=== PATIENT | female | born 1990 | race Caucasian/White ===

== ENCOUNTER 2024-12-08 12:41 | Emergency (ER) | payer SELFPAY ==
[2024-12-08 12:42] VITALS: BP 106/85; PULSE 78; RESP 20; TEMP 36.8; O2SAT 99; BMI 36.3
--- NOTE | 2024-12-08 12:53 | EDS_ITS ---
HPI History of Present Illness Chief Complaint: Dizziness Detail of Chief Complaint: Dizziness Informant: patient Narrative Narrative: Patient presents with complaint of dizziness that started this morning around 10:30 AM. Patient states that she was laying on the floor and then she stood up and felt lightheaded but that feeling never went away. She complains of a mild headache. She had similar feeling before when her hemoglobin was low. 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 A repeat check of her hemoglobin later confirmed that she was back up over 12 and she has since had an ultrasound that showed no retention of products of conception. She tells me she had a cold 1 or 2 weeks ago but has gotten over that. She denies urinary symptoms. Last menstrual period was November 12. [facility] Medical History no medical history Home Medications ?Medication ?Instructions ?Recorded ?Last Taken ?Type NK 12/08/24 Unknown History Allergy/AdvReac Type Severity Reaction Status Date / Time fexofenadine (From Validus-IVC) Allergy Hives Verified 12/08/24 12:45 Family History no significant family his Surgical History (Updated 12/08/24 @ 12:47 by Cyndi Wadsworth) History of tonsillectomy and adenoidectomy Hx of cholecystectomy Surgical History no surgical history Social History Smoking Status: Never smoker ROS ROS ED Review of Systems ROS Unobtainable: other Constitutional Constitutional ED: Reports lethargy; Denies chills, fever(s), sweats or weight loss Eyes Eyes: Denies blurry vision, change in vision or diplopia ENT ENT ED: Denies rhinorrhea or sore throat Cardiovascular Cardiovascular: Denies chest pain, orthopnea or racing heartbeat Respiratory/Chest Respiratory/Chest: Denies cough, dyspnea, dyspnea on exertion, orthopnea or sputum Gastrointestinal Gastrointestinal: Denies abdominal pain, diarrhea, nausea or vomiting Genitourinary Genitourinary ED: Denies dysuria, hematuria or urinary frequency Musculoskeletal Musculoskeletal: Denies arthralgias, back pain, myalgias or neck pain Integumentary Denies abscess, Abrasions or rash Neurologic Neurologic: Reports other Details: Lightheadedness ; Denies headache(s) or weakness Psychiatric Psychiatric: Denies anxiety, depression or suicidal thoughts Endocrine Endocrinology: Denies polydipsia, polyphagia or polyuria Hematologic/Lymphatic Hematologic/Lymphatic: Denies easy bleeding, easy bruising or lymphadenopathy Allergic/Immunologic Allergic/Immunologic ED: Denies mouth swelling, tongue swelling or urticaria EXAM Physical Exam Const Vital Signs: 12/08/24 12:42 12/08/24 13:13 Temperature 98.3 F Temperature Source Oral Pulse Rate 78 Pulse Rate [Lying] 77 Pulse Rate [Sitting (for 1 minute prior to obtaining)] 77 Pulse Rate [Standing (for 1 minute prior to obtaining)] 86 Respiratory Rate 20 H Blood Pressure 106/85 H Blood Pressure [Lying] 111/75 Blood Pressure [Sitting (for 1 minute prior to obtaining)] 122/78 H Blood Pressure [Standing (for 1 minute prior to obtaining)] 113/95 H Blood Pressure Mean 92 Blood Pressure Mean [Lying] 87 Blood Pressure Mean [Sitting (for 1 minute prior to obtaining)] 92 Blood Pressure Mean [Standing (for 1 minute prior to obtaining)] 101 Pulse Ox 99 Positive well nourished and well developed General Appearance ED: well developed and NAD HEENT Reports TM's clear and moist mucous membranes normocephalic and atraumatic; Negative for trauma or tenderness Tympanic Membrane ED: Yes TM's clear Eyes PERRL and EOMs intact bilaterally General Eye ED: Negative for pale conjunctiva or scleral icterus Neck no lymphadenopathy, supple and no JVD General: Negative for tenderness Chest Wall inspection of chest normal and palpation of chest normal Chest: Negative for tenderness Resp normal respiratory effort and clear to auscultation bilaterally Effort and Inspection: Negative for respiratory distress or pain with movement Auscultation: Negative for rhonchi, wheezes or diminished lung sounds Cardio regular rate, regular rhythm, S1 normal heart sound, S2 normal heart sound and no murmurs Peripheral Pulses: pulses 2+ throughout GI normal to inspection, nondistended, normoactive bowel sounds, soft to palpation, non-tender, non-distended and no masses Back/Spine no CVA tenderness and no thoracic nor lumbar tenderness Extremity normal to inspection General Extremety ED: Negative for edema General Extremity: Negative for edema Neuro oriented x3, CN's II-XII intact bilaterally, no sensory deficits noted and gait normal Sensorium / Orientation: awake, alert, oriented to person, oriented to place and oriented to time Motor Exam: strength 5/5 throughout and strength abnormal Psych mental status grossly normal Skin no rashes or lesions noted and no wounds MDM MDM MDM Narrative Medical decision making narrative: Patient presents with complaint of lightheadedness. Concern as she has had history of anemia in the past related to complication of . Clinically she looks well. IV line established. She was ordered a liter [place] fluid bolus. Orthostatic vital signs obtained were negative. CBC with differential obtained showed white count of 7.6 with hemoglobin 13.5 and platelet count of 335. Chemistries unremarkable. hCG was negative. Urinalysis negative for infe ction. Patient on repeat evaluation was feeling somewhat improved. I did do an EKG as well on arrival showed a sinus rhythm with a rate of 84 bpm with occasional PACs otherwise no acute findings. Patient's mother was in the room as I was doing the exit interview and mention that patient had a tick bite about 2 weeks ago and was wondering if her symptoms may be related to Lyme disease. Patient states she never got a fever and never had a rash associated with it and she is not sure how long the tick was attached but thinks it was maybe 24 hours or less. My suspicion for Lyme is low but I did send off a Lyme screen test. Lab Data Attestation: I reviewed the patient's lab results. Labs: Laboratory Results - last 24 hr 12/08/24 12/08/24 12:58 13:25 WBC 7.6 RBC 5.01 Hgb 13.5 Hct 41.4 MCV 82.6 MCH 26.9 L MCHC 32.6 RDW Std Deviation 37.4 RDW Coeff of Liz 12.5 Plt Count 335 MPV 9.9 Immature Gran % (Auto) 0.300 Neut % (Auto) 64.2 Lymph % (Auto) 28.8 Snyder % (Auto) 5.5 Eos % (Auto) 0.7 Baso % (Auto) 0.5 Absolute Neuts (auto) 4.9 Absolute Lymphs (auto) 2.20 Nucleated RBC % 0 Sodium 137 Potassium 3.8 Chloride 101 Carbon Dioxide 23.3 Anion Gap 12 BUN 8 Creatinine 0.67 L Estim Creat Clear Calc 136.61 Est GFR (MDRD) Non-Af 117 BUN/Creatinine Ratio 11.5 Glucose 102 H Calcium 9.3 Serum , Qual NEGATIVE Urine Color Straw Urine Clarity Clear Urine pH 6.0 Ur Specific [place] 1.010 Urine Protein Negative Urine Glucose (UA) Normal Urine Ketones Negative Urine Occult Blood 10 H Urine Nitrite Negative Urine Bilirubin Negative Urine Urobilinogen Normal Ur Leukocyte Esterase Negative Urine RBC 0 SEEN Urine WBC 0 SEEN Ur Squamous Epith Cells 0-5 SEEN Urine Bacteria 0 SEEN Urine Mucus 0 SEEN EKG Initial EKG: Attestation: I personally reviewed and interpreted this EKG as follows: Comments: Sinus rhythm with rate of 84 bpm with occasional PACs Discharge Plan Triage Chief Complaint: Dizziness ED Provider: Luis Felipe Joya Dx/Rx/DC Orders Clinical Impression: Dizziness Instructions: ED Dizziness, Uncertain Cause Prescriptions: No Action NK Primary Care Provider: JOSE KLEIN Referrals: JOSE KLEIN [Other] - 3-5 Days Print Language: Indonesian Disposition Disposition: Home, Self Care
[2024-12-08 13:05] LABS: Hematocrit 41.4 % (37-47); Hemoglobin 13.5 g/dL (12.0-15.0); Immature Granulocytes Count 0.020 X10^3/uL (0.0-0.0); Mean Corp Hgb Conc 32.6 g/dL (32-36); Mean Corpuscular Volume 82.6 fL (81-99); Mean Platelet Vol. 9.9 fl (6.2-12.0); NRBC Flagged by Analyzer 0 % (0-5); Platelet Count 335 K/mm3 (150-450); RBC Distribution Width CV 12.5 % (11.6-14.6); RBC Distribution Width SD 37.4 fl (35.1-43.9); Red Blood Count 5.01 M/mm3 (4.2-5.4); White Blood Count 7.6 K/mm3 (4.4-11.0)
[2024-12-08] MEDS: 0.9% Normal Saline (1000mL) 1,000 ML 1000 ML IV (13:11)
[2024-12-08 13:13] VITALS: BP 111/75; BP 113/95; BP 122/78; PULSE 77; PULSE 86
[2024-12-08 13:16] LABS: Internal QC Validated? YES +Cl - CLEAR BKGD; Pregnancy, Serum, hCG Quali. NEGATIVE Negative; Record Kit Lot#, Serum Preg. 980607
[2024-12-08 13:31] LABS: Mucous, Urine 0 SEEN /hpf (<or=2+); Red Blood Cells-Urine 0 SEEN /hpf (0-5)
[2024-12-08 13:33] LABS: Color, Urine Straw (Yellow); Glucose, Dipstick Normal (Normal); Ketone-Dipstick Negative (Negative); Leukocyte Esterase-Dipstick Negative /ul (Negative); Nitrite-Dipstick Negative (Negative); Occult Blood-Urine 10 /ul (Negative); Protein-Dipstick Negative (Negative); Specific Gravity, Urine 1.010 (1.002-1.030); Urine Bilirubin Dipstick Negative (Negative)
[2024-12-08 13:38] LABS: Squamous Epithelial Cells - UA 0-5 SEEN /hpf (5-10)
[2024-12-08 13:43] LABS: Anion Gap 12 (5-15); BUN 8 mg/dL (4-19); BUN/Creat Ratio 11.5 RATIO (10-20); Calcium,Total 9.3 mg/dL (7.6-11.0); Carbon Dioxide 23.3 mmol/L (21.0-32.0); Chloride 101 mmol/L (98-108); Estimated Creatinine Clearance 136.61 ml/min (50-250); Glucose 102 mg/dL (70-99); Potassium 3.8 mmol/L (3.3-5.1)
[2024-12-08 14:51] VITALS: BP 116/66; PULSE 68; RESP 17; TEMP 36.9; O2SAT 97
[2024-12-10 14:08] LABS: Lyme Scn Total Ab w/Rflx Negative (Negative)
== END 2024-12-08 14:52 | disposition home or self-care (01) ==
PROVIDERS: Emergency Provider Emergency Medicine; Visit Provider Emergency Medicine
DX: R42 Dizziness and giddiness (principal)
CPT/HCPCS: 80048; 81001; 84703; 85025; 86618; 93005; 96360; 99285; A4216